=== PATIENT | male | born 1970 | race Hispanic/Latino ===

== ENCOUNTER 2023-02-02 08:23 | Day surgery (SDC) | payer OTHER ==
[2023-01-31 13:35] VITALS: BMI 27.2
[2023-02-02] MEDS ORDERED: PROPOFOL 40 ML ONE (10:45)
[2023-02-02] MEDS ORDERED: PROPOFOL 20 ML ONE ×2 (11:00→11:21)
== END 2023-02-02 12:10 | disposition home or self-care (01) ==
LOC: CSHSDC 08:23
PROVIDERS: ATTEND Internal Medicine Gastroenterology
PROC: 0DJD8ZZ Inspection of Lower Intestinal Tract, Via Natural or Artificial Opening Endoscopic (ICD-10-PCS; principal; 2023-02-02)
PROC: 0DB68ZX Excision of Stomach, Via Natural or Artificial Opening Endoscopic, Diagnostic (ICD-10-PCS; principal; 2023-02-02)
PROC: 0D548ZZ Destruction of Esophagogastric Junction, Via Natural or Artificial Opening Endoscopic (ICD-10-PCS; principal; 2023-02-02)
DX: Z12.11 Encounter for screening for malignant neoplasm of colon (principal); K64.9 Unspecified hemorrhoids; K31.89 Other diseases of stomach and duodenum; K31.7 Polyp of stomach and duodenum; K25.9 Gastric ulcer, unspecified as acute or chronic, without hemorrhage or perforation; Z87.891 Personal history of nicotine dependence
CPT/HCPCS: 88305; J2704